=== PATIENT | female | born 1960 | race Caucasian/White ===

== ENCOUNTER 2022-09-04 15:12 | Emergency (ER) | payer MEDICAID ==
[~2022-09-04] VITALS: Ht 175.3 cm; Wt 175.0 kg
[2022-09-04 17:12] LABS: BASOPHILS % 0.3 % (0.0-2.0); EOSINOPHILS % 1.7 % (0.0-5.0); HEMATOCRIT. 28.9 % (36.0-48.0); HEMOGLOBIN. 9.8 g/dL (12.0-16.0); LYMPHOCYTES % 8.5 % (20.0-50.0); MEAN CORPUSCULAR HEMOGLOBIN 31.3 pg (28.0-32.0); MEAN CORPUSCULAR VOLUME 92.3 fL (81.0-99.0); MEAN PLATELET VOLUME 7.9 fl (7.4-10.4); MONOCYTES % 9.8 % (2.0-8.0); NEUTROPHILS % 79.7 % (40.0-76.0); PLATELET 121 x1000/uL (130-400); RED BLOOD CELL COUNT 3.13 mill/uL (4.2-5.4); RED CELL DISTRIBUTION WIDTH 16.1 % (11.6-14.6)
[2022-09-04 17:20] LABS: CHLORIDE 102 mEq/L (98-107)
[2022-09-04] MEDS ORDERED: ONDA4TAB50 PO (17:56)
[2022-09-04] MEDS ORDERED: ONDANSETRON HCL 4MG/2ML INJ IV ONE (18:00)
[2022-09-05] VITALS: BP 118/45
== END 2022-09-05 12:05 | disposition home or self-care (01) ==
LOC: ER 15:12
DX: R11.2 Nausea with vomiting, unspecified (principal); M79.10 Myalgia, unspecified site; R19.7 Diarrhea, unspecified; I13.2 Hypertensive heart and chronic kidney disease with heart failure and with stage 5 chronic kidney disease, or end stage renal disease; E11.22 Type 2 diabetes mellitus with diabetic chronic kidney disease; N18.6 End stage renal disease; I50.9 Heart failure, unspecified; J44.9 Chronic obstructive pulmonary disease, unspecified; Z99.2 Dependence on renal dialysis
CPT/HCPCS: 36415; 80053; 84484; 85025; 93005; 99285; Z7610

== ENCOUNTER 2022-09-11 15:46 | Emergency (ER) | payer MEDICAID ==
[~2022-09-11] VITALS: Ht 170.2 cm; Wt 227.0 kg
[~2022-09-11 15:46] MED LIST: ONDA4TAB50 PO
[2022-09-11] MEDS ORDERED: FAMOTIDINE 20MG/2ML VIAL IV ONE (16:00)
[2022-09-11 17:12] LABS: BASOPHILS % 0.5 % (0.0-2.0); EOSINOPHILS % 1.8 % (0.0-5.0); HEMATOCRIT. 37.2 % (36.0-48.0); HEMOGLOBIN. 12.1 g/dL (12.0-16.0); LYMPHOCYTES % 35.3 % (20.0-50.0); MEAN CORPUSCULAR HEMOGLOBIN 31.3 pg (28.0-32.0); MEAN CORPUSCULAR VOLUME 96.3 fL (81.0-99.0); MEAN PLATELET VOLUME 9.5 fl (7.4-10.4); MONOCYTES % 5.9 % (2.0-8.0); NEUTROPHILS % 56.5 % (40.0-76.0); PLATELET 132 x1000/uL (130-400); RED BLOOD CELL COUNT 3.87 mill/uL (4.2-5.4); RED CELL DISTRIBUTION WIDTH 17.1 % (11.6-14.6)
[2022-09-11 17:20] LABS: CHLORIDE 102 mEq/L (98-107)
[2022-09-11] MEDS ORDERED: DIPHENHYDRAMINE 50MG/ML VIAL IV NR (17:30)
[2022-09-11 17:31] LABS: ETHANOL BLOOD < 10 mg/dL
[2022-09-11] MEDS ORDERED: EPIN0.3P3 IM (18:50)
[2022-09-11] MEDS ORDERED: DIPH25TA62 MT (18:50)
[2022-09-11 20:38] VITALS: BP 127/60
== END 2022-09-11 21:11 ==
LOC: ER 15:46
DX: T78.40XA Allergy, unspecified, initial encounter (principal); X58.XXXA Exposure to other specified factors, initial encounter; I12.0 Hypertensive chronic kidney disease with stage 5 chronic kidney disease or end stage renal disease; E11.22 Type 2 diabetes mellitus with diabetic chronic kidney disease; N18.6 End stage renal disease; Z99.2 Dependence on renal dialysis; Z87.891 Personal history of nicotine dependence
CPT/HCPCS: 36415; 71045; 80053; 80320; 83690; 83880; 84484; 85025; 93005; 94660; 96374; 96375; 99285; C1893; J1200; J3490; Z7610; G0480

== ENCOUNTER 2023-03-24 15:12 | Inpatient (IN) | payer MEDICAID ==
[~2023-03-24] VITALS: Ht 180.3 cm; Wt 168.7 kg
[~2023-03-24 15:12] MED LIST changes: +DIPH25TA62 MT; +EPIN0.3P3 IM
[2023-03-24] MEDS ORDERED: ALBUTEROL (0.083%) 2.5MG/3ML NEB HHN STA (15:49)
[2023-03-24] MEDS ORDERED: METHYLPREDNISOLONE SOD SUCC 125MG/2ML (ACT-O-VIAL) IV STA (15:49)
[2023-03-24 16:49] LABS: BG BASE EXCESS 0.3 mmol/L (-2.0-2.0); BG CARBOXYHEMOGLOBIN 2.7 % (0.5-1.5); BG DEOXYHEMOGLOBIN 0.3 % (0.0-5.0); BG METHEMOGLOBIN 0.3 % (0.0-1.5); BG OXYGEN SATURATION 99.7 % (92.0-98.5); BG OXYHEMOGLOBIN 96.7 % (94.0-97.0); BG PCO2 53.7 mmHg (35.0-45.0); BG PH 7.319 (7.350-7.450); BG SAMPLE SITE LEFT BRACHIAL; BG TOTAL HEMOGLOBIN 10.3 g/dL (12.0-18.0); BG VENT MODE MASK - NRB
[2023-03-24] MEDS ORDERED: ENOXAPARIN 120MG/0.8ML SYR SUBCUT NR (17:00)
[2023-03-24] MEDS: PREDNISONE 20MG TABLET PO SCH (17:00)
[2023-03-24 17:24] LABS: HEMATOCRIT. 29.9 % (36.0-48.0); HEMOGLOBIN. 9.6 g/dL (12.0-16.0); MEAN CORPUSCULAR HEMOGLOBIN 30.5 pg (28.0-32.0); MEAN CORPUSCULAR HGB CONC 32.2 g/dL (31.0-37.0); MEAN CORPUSCULAR VOLUME 94.7 fL (81.0-99.0); MEAN PLATELET VOLUME 8.4 fl (7.4-10.4); PLATELET 151 x1000/uL (130-400); RED BLOOD CELL COUNT 3.16 mill/uL (4.2-5.4); RED CELL DISTRIBUTION WIDTH 15.2 % (11.6-14.6); WHITE BLOOD COUNT 4.5 x1000/uL (4.5-11.0)
[2023-03-24 17:27] LABS: DIFFERENTIAL COMMENT 1
[2023-03-24 17:33] LABS: INDEX HEMOLYSI 1 (1-3); INDEX ICTERIC 1 (1-4); INDEX LIPEMIC 1 (1-3); INR 0.9; PROTHROMBIN TIME 10.2 sec (9.6-11.0)
[2023-03-24 17:44] LABS: PLATELET ESTIMATE NORMAL
[2023-03-24 17:49] LABS: CHLORIDE 105 mEq/L (98-107); POTASSIUM 4.4 mEq/L (3.5-5.1); SODIUM 137 mEq/L (136-145)
[2023-03-24] MEDS ORDERED: SEVE800T8 PO (17:50)
[2023-03-24] MEDS ORDERED: BUPR-114 PO (17:50)
[2023-03-24] MEDS ORDERED: APIX2.5T PO (17:50)
[2023-03-24] MEDS ORDERED: ISOS30TA11 PO (17:50)
[2023-03-24] MEDS ORDERED: HYDR-4001 PO (17:50)
[2023-03-24] MEDS ORDERED: FOLI-43 PO (17:50)
[2023-03-24] MEDS ORDERED: PANT40TA51 PO (17:50)
[2023-03-24] MEDS ORDERED: AMLO10TA80 PO (17:50)
[2023-03-24] MEDS ORDERED: GABA-529 PO (17:50)
[2023-03-24] MEDS ORDERED: HYDR-4135 PO (17:50)
[2023-03-24 17:54] LABS: ALANINE AMINOTRANSFERASE 11 IU/L (13-61); ALBUMIN 3.5 g/dL (3.4-5.0); ASPARTATE AMINOTRANSFERASE 8 IU/L (15-37); BILIRUBIN TOTAL 0.2 mg/dL (0.1-1.0); CALCIUM 8.7 mg/dL (8.5-10.1); CARBON DIOXIDE 27 mEq/L (21-32); GLUCOSE 102 mg/dL (70-105); NT PRO B-TYPE NATRIURETIC PEP 6802 pg/mL (5-125); TROPONIN I HIGH SENSITIVITY 22 ng/L (<54); UREA NITROGEN BLOOD 36 mg/dL (7-21)
[2023-03-24 18:10] LABS: CREATININE 5.3 mg/dL (0.6-1.3)
[2023-03-24] MEDS: GABAPENTIN 100MG CAPSULE PO SCH (21:23)
[2023-03-24 22:35] VITALS: BP 133/79; PULSE 99; RESP 22; TEMP 96.8
[2023-03-24 23:00] VITALS: BP 133/79; PULSE 99; RESP 18; TEMP 96.8
[2023-03-25] VITALS (14 sets, daily range): BP systolic 108–153; BP diastolic 49–74; PULSE 71–103; RESP 17–22; TEMP 97.6–98.3; O2SAT 91–95
[2023-03-25] MEDS ORDERED: ACETAMINOPHEN 325MG TABLET PO PRN (00:30)
[2023-03-25] MEDS ORDERED: CLONIDINE 0.1MG TABLET PO PRN (00:30)
[2023-03-25] MEDS ORDERED: MAGNESIUM/ALUMINUM HYDROXIDE/SIMETHICONE 30ML UDC PO PRN (00:30)
[2023-03-25] MEDS ORDERED: GUAIFENESIN 200MG/10ML SUGAR FREE UDC PO PRN (00:30)
[2023-03-25] MEDS ORDERED: ONDANSETRON HCL 4MG/2ML INJ IV PRN (00:30)
[2023-03-25] MEDS ORDERED: DOCUSATE SODIUM 100MG CAPSULE PO PRN (00:30)
[2023-03-25 00:44] LABS: TROPONIN I HIGH SENSITIVITY 20 ng/L (<54)
[2023-03-25] MEDS: AMLODIPINE 10MG TABLET PO SCH ×2 (00:54→08:41)
[2023-03-25] MEDS: ISOSORBIDE DINITRATE 30MG TABLET PO SCH ×3 (00:54→16:21)
[2023-03-25] MEDS: HYDRALAZINE HCL 100MG TABLET PO SCH ×3 (00:55→17:00)
[2023-03-25] MEDS: HYDROCODONE/ACETAMINOPHEN 5/325MG TABLET PO PRN ×2 (00:55→08:58)
[2023-03-25] MEDS: PANTOPRAZOLE 40MG DR TABLET PO SCH ×2 (00:55→08:42)
[2023-03-25] MEDS ORDERED: DEXTROSE 50% WATER 50ML SYRINGE IV PRN ×2 (03:15→07:15)
[2023-03-25 03:42] LABS: *AMPHETAMINES SCREEN URINE NEGATIVE (NEGATIVE); *BARBITURATES SCREEN URINE NEGATIVE (NEGATIVE); *BENZODIAZEPINES SCREEN URINE NEGATIVE (NEGATIVE); *COCAINE SCREEN URINE NEGATIVE (NEGATIVE); CANNABINOID URINE SCREEN NEGATIVE (NEGATIVE); ECSTASY MDMA SCREEN URINE CONF.TEST INDICATED (NEGATIVE); METHADONE URINE SCREEN NEGATIVE (NEGATIVE); OPIATES URINE SCREEN PRESUMTIVE POSITIVE (NEGATIVE); PHENCYCLIDINE URINE SCREEN NEGATIVE (NEGATIVE)
[2023-03-25] MEDS: BLOOD SUGAR DIAGNOSTIC STRIP TEST SCH ×4 (07:40→21:42)
[2023-03-25] MEDS ORDERED: BLOOD SUGAR DIAGNOSTIC STRIP TEST SCH (07:40)
[2023-03-25] MEDS: PREDNISONE 20MG TABLET PO SCH ×2 (08:41→17:22)
[2023-03-25] MEDS: INSULIN LISPRO 100 UNITS/ML SUBCUT SCH ×4 (08:43→21:44)
[2023-03-25] MEDS ORDERED: ENOXAPARIN 150MG/ML SYR SUBCUT SCH (09:00)
[2023-03-25] MEDS: IPRATROPIUM/ALBUTEROL 0.5-3(2.5)MG/3ML NEB HHN SCH ×2 (09:18→14:53)
[2023-03-25 10:49] LABS: IRON 72 ug/dL (50-175); TOTAL IRON BINDING CAPACITY 388 ug/dL (250-450)
[2023-03-25 11:15] LABS: FOLIC ACID (FOLATE) SERUM >20 ng/mL ng/mL (>5.38); VITAMIN B12 SERUM 482 pg/mL (211-911)
[2023-03-25] MEDS: AZITHROMYCIN 500 MG in DEXT 5% WATER 250 ML IV SCH (14:10)
[2023-03-25 15:30] LABS: HEPATITIS B SURFACE ANTIGEN NEGATIVE (Negative)
[2023-03-25 15:59] LABS: HEPATITIS A AB IGM NEGATIVE (NEGATIVE)
[2023-03-25] MEDS: FOLIC ACID 1MG TABLET PO SCH (16:21)
[2023-03-25] MEDS ORDERED: GABAPENTIN 100MG CAPSULE PO SCH (17:00)
[2023-03-25] MEDS: SEVELAMER CARBONATE 800 MG TABLET PO SCH (17:22)
[2023-03-25] MEDS: ACETAMINOPHEN 325MG TABLET PO PRN (21:17)
[2023-03-26] VITALS (9 sets, daily range): BP systolic 127–150; BP diastolic 56–73; PULSE 79–88; RESP 17–20; TEMP 96.5–97.8; O2SAT 98–99
[2023-03-26] MEDS: BLOOD SUGAR DIAGNOSTIC STRIP TEST SCH ×4 (07:40→21:52)
[2023-03-26] MEDS: INSULIN LISPRO 100 UNITS/ML SUBCUT SCH ×3 (08:10→21:00)
[2023-03-26] MEDS: IPRATROPIUM/ALBUTEROL 0.5-3(2.5)MG/3ML NEB HHN SCH ×3 (08:10→20:06)
[2023-03-26] MEDS: ISOSORBIDE DINITRATE 30MG TABLET PO SCH ×2 (08:33→18:14)
[2023-03-26] MEDS: APIXABAN 2.5 MG TABLET PO SCH ×2 (08:33→18:14)
[2023-03-26] MEDS: PREDNISONE 20MG TABLET PO SCH (08:33)
[2023-03-26] MEDS: PANTOPRAZOLE 40MG DR TABLET PO SCH (08:33)
[2023-03-26] MEDS: GABAPENTIN 100MG CAPSULE PO SCH ×3 (08:33→18:15)
[2023-03-26] MEDS: FOLIC ACID 1MG TABLET PO SCH (08:33)
[2023-03-26] MEDS: SEVELAMER CARBONATE 800 MG TABLET PO SCH ×2 (08:33→18:14)
[2023-03-26] MEDS: AMLODIPINE 10MG TABLET PO SCH (08:34)
[2023-03-26] MEDS: HYDRALAZINE HCL 100MG TABLET PO SCH ×2 (08:34→18:14)
[2023-03-26] MEDS: ACETAMINOPHEN 325MG TABLET PO PRN ×2 (09:56→22:38)
[2023-03-26] MEDS: AZITHROMYCIN 500 MG in DEXT 5% WATER 250 ML IV SCH (09:56)
[2023-03-26] MEDS ORDERED: AZIT500T8 MT (10:12)
[2023-03-26] MEDS ORDERED: P20 PO (10:12)
[2023-03-26 11:22] LABS: HEMOGLOBIN 10.7 g/dL (12.0-16.0); MEAN CORPUSCULAR HEMOGLOBIN 31.9 pg (28.0-32.0); MEAN CORPUSCULAR HGB CONC 32.5 g/dL (31.0-37.0); PLATELET 165 x1000/uL (130-400); RED BLOOD CELL COUNT 3.37 mill/uL (4.2-5.4); RED CELL DISTRIBUTION WIDTH 15.9 % (11.6-14.6); WHITE BLOOD COUNT 6.7 x1000/uL (4.5-11.0)
[2023-03-26 13:15] LABS: ALBUMIN 3.4 g/dL (3.4-5.0); CALCIUM 8.6 mg/dL (8.5-10.1); CARBON DIOXIDE 25 mEq/L (21-32); CHLORIDE 103 mEq/L (98-107); GLUCOSE 125 mg/dL (70-105); INDEX HEMOLYSI 1 (1-3); INDEX ICTERIC 1 (1-4); INDEX LIPEMIC 1 (1-3); POTASSIUM 5.1 mEq/L (3.5-5.1); SODIUM 134 mEq/L (136-145); UREA NITROGEN BLOOD 49 mg/dL (7-21)
[2023-03-26 13:19] LABS: ALANINE AMINOTRANSFERASE 12 IU/L (13-61); ASPARTATE AMINOTRANSFERASE 14 IU/L (15-37); BILIRUBIN TOTAL 0.5 mg/dL (0.1-1.0); CHOLESTEROL 119 mg/dL (<200); HDL CHOLESTEROL 63 mg/dL (40-59); LDL CHOLESTEROL 51 mg/dL (5-100); PROTEIN TOTAL 6.6 g/dL (6.0-8.3); TRIGLYCERIDE 89 mg/dL (0-150)
[2023-03-26 13:23] LABS: CREATININE 5.7 mg/dL (0.6-1.3)
[2023-03-26] MEDS: PREDNISONE 10MG TABLET PO SCH (18:15)
[2023-03-27] VITALS (17 sets, daily range): BP systolic 123–166; BP diastolic 53–76; PULSE 72–88; RESP 17–20; TEMP 96.9–99.3; O2SAT 96
[2023-03-27] MEDS: IPRATROPIUM/ALBUTEROL 0.5-3(2.5)MG/3ML NEB HHN SCH ×3 (01:47→21:10)
[2023-03-27] MEDS: BLOOD SUGAR DIAGNOSTIC STRIP TEST SCH ×4 (06:57→21:15)
[2023-03-27] MEDS: SEVELAMER CARBONATE 800 MG TABLET PO SCH ×3 (07:08→17:31)
[2023-03-27] MEDS: PANTOPRAZOLE 40MG DR TABLET PO SCH (07:08)
[2023-03-27] MEDS: PREDNISONE 10MG TABLET PO SCH (07:08)
[2023-03-27] MEDS: INSULIN LISPRO 100 UNITS/ML SUBCUT SCH ×4 (07:10→21:14)
[2023-03-27 07:40] LABS: BASOPHILS % 0.5 % (0.0-2.0); DIFFERENTIAL COMMENT 0; EOSINOPHILS % 0.1 % (0.0-5.0); HEMATOCRIT. 33.2 % (36.0-48.0); HEMOGLOBIN. 10.1 g/dL (12.0-16.0); LYMPHOCYTES % 20.9 % (20.0-50.0); MEAN CORPUSCULAR HEMOGLOBIN 31.6 pg (28.0-32.0); MEAN CORPUSCULAR HGB CONC 30.6 g/dL (31.0-37.0); MEAN CORPUSCULAR VOLUME 103.4 fL (81.0-99.0); MEAN PLATELET VOLUME 9.2 fl (7.4-10.4); NEUTROPHILS % 70.5 % (40.0-76.0); PLATELET 159 x1000/uL (130-400); RED BLOOD CELL COUNT 3.21 mill/uL (4.2-5.4); RED CELL DISTRIBUTION WIDTH 16.8 % (11.6-14.6)
[2023-03-27 08:36] LABS: CALCIUM 8.3 mg/dL (8.5-10.1)
[2023-03-27 08:40] LABS: CREATININE 6.5 mg/dL (0.6-1.3); POTASSIUM 5.9 mEq/L (3.5-5.1)
[2023-03-27] MEDS: AMLODIPINE 10MG TABLET PO SCH (09:00)
[2023-03-27] MEDS ORDERED: AZITHROMYCIN 500 MG TABLET PO SCH (09:00)
[2023-03-27] MEDS: HYDRALAZINE HCL 100MG TABLET PO SCH ×2 (09:00→17:31)
[2023-03-27] MEDS: APIXABAN 2.5 MG TABLET PO SCH ×2 (09:00→17:41)
[2023-03-27] MEDS ORDERED: SODIUM POLYSTYRENE SULFONATE 15 G/60 ML BOT PO NR (09:15)
[2023-03-27] MEDS: GABAPENTIN 100MG CAPSULE PO SCH ×3 (09:42→17:31)
[2023-03-27] MEDS: FOLIC ACID 1MG TABLET PO SCH (09:42)
[2023-03-27] MEDS: ISOSORBIDE DINITRATE 30MG TABLET PO SCH ×2 (09:45→17:31)
[2023-03-27 18:47] LABS: POTASSIUM 4.5 mEq/L (3.5-5.1)
[2023-03-28] MEDS: IPRATROPIUM/ALBUTEROL 0.5-3(2.5)MG/3ML NEB HHN SCH (01:46)
== END 2023-03-28 05:22 | DRG 140 ==
LOC: ER 15:12 → 7WST 22:47 → 6EST 03-26 13:00
PROVIDERS: ADMIT Internal Medicine; ATTEND Internal Medicine
PROC: 5A1D70Z Performance of Urinary Filtration, Intermittent, Less than 6 Hours Per Day (ICD-10-PCS; principal; 2023-03-25)
PROC: 5A1D70Z Performance of Urinary Filtration, Intermittent, Less than 6 Hours Per Day (ICD-10-PCS; 2023-03-27)
DX: J44.1 Chronic obstructive pulmonary disease with (acute) exacerbation (principal); J96.01 Acute respiratory failure with hypoxia; I50.43 Acute on chronic combined systolic (congestive) and diastolic (congestive) heart failure; I13.2 Hypertensive heart and chronic kidney disease with heart failure and with stage 5 chronic kidney disease, or end stage renal disease; N18.6 End stage renal disease; E11.22 Type 2 diabetes mellitus with diabetic chronic kidney disease; E66.2 Morbid (severe) obesity with alveolar hypoventilation; E87.29 Other acidosis; E87.5 Hyperkalemia; Z99.81 Dependence on supplemental oxygen; Z99.2 Dependence on renal dialysis; Z68.43 Body mass index [BMI] 50.0-59.9, adult; Z79.01 Long term (current) use of anticoagulants; Z88.1 Allergy status to other antibiotic agents; Z79.899 Other long term (current) drug therapy; Z79.4 Long term (current) use of insulin; Z86.718 Personal history of other venous thrombosis and embolism; Z87.891 Personal history of nicotine dependence; Z87.410 Personal history of cervical dysplasia
CPT/HCPCS: 36415; 36600; 71045; 80048; 80053; 80061; 80305; 82375; 82607; 82746; 82805; 82962; 83036; 83540; 83550; 83880; 84132; 84145; 84484; 85025; 85027; 86705; 86709; 87340; 87426; 87804; 90935; 93005; 93306; 94640; 96372; 96374; 99285; C9803; J0456; J1650; J1815; J2930; J7060; J7512